=== PATIENT | female | born 1960 | race Asian ===

== ENCOUNTER 2021-06-26 04:50 | Day surgery (SDC) | payer OTHER ==
[2021-06-25 14:11] VITALS: BMI 33.2
[2021-06-26 13:43] VITALS: TEMP 98
[2021-06-26 14:29] VITALS: BP 130/57; PULSE 65
== END 2021-06-26 14:40 | disposition home or self-care (01) ==
LOC: JASU-ENDO 04:50
PROVIDERS: ATTEND Internal Medicine Gastroenterology
PROC: 0DJD8ZZ Inspection of Lower Intestinal Tract, Via Natural or Artificial Opening Endoscopic (ICD-10-PCS; principal; 2021-06-26 13:45)
DX: Z12.11 Encounter for screening for malignant neoplasm of colon (principal)

== ENCOUNTER 2021-09-11 05:14 | Day surgery (SDC) | payer OTHER ==
[2021-09-10 10:57] VITALS: BMI 32.6
[2021-09-11 13:00] VITALS: BP 108/85; PULSE 73; TEMP 98
== END 2021-09-11 13:07 | disposition home or self-care (01) ==
LOC: JASU-ENDO 05:14
PROVIDERS: ATTEND Internal Medicine Gastroenterology
PROC: 0DB68ZX Excision of Stomach, Via Natural or Artificial Opening Endoscopic, Diagnostic (ICD-10-PCS; principal; 2021-09-11 11:15)
DX: K29.50 Unspecified chronic gastritis without bleeding (principal)
CPT/HCPCS: 88305-TC; 88342-TC